=== PATIENT | male | born 1950 | race Caucasian/White ===

== ENCOUNTER 2018-10-01 08:54 | Day surgery (SDC) | payer MEDICARE, OTHER ==
[~2018-10-01] VITALS: Ht 175.3 cm; Wt 113.8 kg
[~2018-10-01 08:54] MED LIST: ASPI81CH PO; BUDE6HFA INH; CLOP75 PO; Hair, Skin & N1 EACH PO; LEVSOD137 PO; LISI20 PO; METO25ER PO; ROSU10TA PO; TOCO1000 PO
== END 2018-10-01 12:19 | disposition home or self-care (01) ==
LOC: ORSCMMR 08:54 → ORD 10:45 → ORSCMMR 12:19
PROVIDERS: Surgery
PROC: 0DBK8ZX Excision of Ascending Colon, Via Natural or Artificial Opening Endoscopic, Diagnostic (ICD-10-PCS; principal; 2018-10-01 10:45)
PROC: 0DBQXZZ Excision of Anus, External Approach (ICD-10-PCS; principal; 2018-10-01 10:45)
DX: Z12.11 Encounter for screening for malignant neoplasm of colon (principal); D12.2 Benign neoplasm of ascending colon; K64.4 Residual hemorrhoidal skin tags; I10 Essential (primary) hypertension; I25.2 Old myocardial infarction; Z86.010 Personal history of colon polyps; E03.9 Hypothyroidism, unspecified; E78.5 Hyperlipidemia, unspecified; E66.01 Morbid (severe) obesity due to excess calories; Z68.37 Body mass index [BMI] 37.0-37.9, adult; Z79.01 Long term (current) use of anticoagulants; Z79.82 Long term (current) use of aspirin; Z79.899 Other long term (current) drug therapy
CPT/HCPCS: 88304; 88305; J3010; J7120